=== PATIENT | female | born 1985 | race African-American/Black ===

== ENCOUNTER 2016-06-09 07:52 | Emergency (ER) | payer OTHER ==
[~2016-06-09] VITALS: Ht 157.5 cm; Wt 99.8 kg
[~2016-06-09 07:52] MED LIST: KEFLEX500 MG PO; NORCO 5-325 TA1 EACH PO; PHENERGAN 25 MG25 M1 PO; ZOFRAN ODT4 MG PO
[2016-06-09] MEDS ORDERED: NOHOMEMEDICATIONS (07:56)
[2016-06-09] MEDS ORDERED: FLEXERIL PO (09:41)
[2016-06-09 09:50] VITALS: BP 126/73
== END 2016-06-09 10:07 | disposition home or self-care (01) ==
LOC: ER 07:52
DX: S86.811A Strain of other muscle(s) and tendon(s) at lower leg level, right leg, initial encounter (principal); Z98.890 Other specified postprocedural states; F17.210 Nicotine dependence, cigarettes, uncomplicated; F10.99 Alcohol use, unspecified with unspecified alcohol-induced disorder; X58.XXXA Exposure to other specified factors, initial encounter; Y93.89 Activity, other specified; Y92.89 Other specified places as the place of occurrence of the external cause; Y99.0 Civilian activity done for income or pay

== ENCOUNTER 2016-11-22 12:25 | Emergency (ER) | payer OTHER ==
[~2016-11-22] VITALS: Ht 157.5 cm; Wt 107.0 kg
[2016-11-22 12:25] VITALS: BP 140/84
[~2016-11-22 12:25] MED LIST changes: +FLEXERIL PO; +NOHOMEMEDICATIONS
== END 2016-11-22 12:54 | disposition home or self-care (01) ==
LOC: ER 12:25
DX: Z53.21 Procedure and treatment not carried out due to patient leaving prior to being seen by health care provider (principal)

== ENCOUNTER 2017-01-04 10:44 | Emergency (ER) | payer OTHER ==
[~2017-01-04] VITALS: Ht 157.5 cm; Wt 95.3 kg
[~2017-01-04 10:44] MED LIST changes: +FLAGYL500 MG PO; +NAPROSYN500 MG PO
[2017-01-04 11:22] LABS: URINE BILIRUBIN NEGATIVE (Negative); URINE BLOOD 2+ (Negative); URINE COLOR YELLOW; URINE GLUCOSE-RANDOM* NEGATIVE (Negative); URINE KETONES NEGATIVE (Negative); URINE LEUKOCYTES-REFLEX 2+ (Negative); URINE PROTEIN (DIPSTICK) 1+ (Negative); URINE UROBILINOGEN 0.2 E.U./dl (0.2-1.0)
[2017-01-04 11:33] LABS: CASTS None Seen /LPF (None Seen); CRYSTALS None Seen /LPF (None Seen); SQUAMOUS 4-10 Moderate /LPF (0-3); URINE WBC-REFLEX >25 Many /HPF (0-5)
[2017-01-04] MEDS ORDERED: KEFLEX500 MG PO (12:10)
[2017-01-04] MEDS ORDERED: PHENAZOPYRIDIN200 M2 PO (12:10)
[2017-01-04] MEDS ORDERED: DIFLUCAN200 MG PO (12:30)
[2017-01-04 12:34] VITALS: BP 140/79
[2017-01-07 22:06] LABS: CHLAMYDIA TRACHOMATIS-PCR Negative (Negative); NEISSERIA GONORRHEA-PCR Negative (Negative)
== END 2017-01-04 12:35 | disposition home or self-care (01) ==
LOC: ER 10:44
PROVIDERS: Physician Assistant
DX: N39.0 Urinary tract infection, site not specified (principal); B37.3 Candidiasis of vulva and vagina; F17.210 Nicotine dependence, cigarettes, uncomplicated

== ENCOUNTER 2017-06-01 12:56 | Emergency (ER) | payer OTHER ==
[~2017-06-01] VITALS: Ht 157.5 cm; Wt 104.3 kg
[~2017-06-01 12:56] MED LIST changes: +DIFLUCAN200 MG PO; +PHENAZOPYRIDIN200 M2 PO
[2017-06-01] MEDS ORDERED: PREDNISONE 10 M10 M1 PO (13:54)
[2017-06-01] MEDS ORDERED: AMOXICILLIN 50500 M1 PO (13:54)
== END 2017-06-01 14:16 | disposition home or self-care (01) ==
LOC: ER 12:56
DX: K12.2 Cellulitis and abscess of mouth (principal); F17.210 Nicotine dependence, cigarettes, uncomplicated; Z98.890 Other specified postprocedural states

== ENCOUNTER 2017-11-15 16:10 | Emergency (ER) | payer OTHER ==
[~2017-11-15] VITALS: Ht 157.5 cm; Wt 99.8 kg
[~2017-11-15 16:10] MED LIST changes: +AMOXICILLIN 50500 M1 PO; +PREDNISONE 10 M10 M1 PO
[2017-11-15 17:40] LABS: ABSOLUTE NEUTROPHILS 6.1 thou/uL (1.4-8.2); BASOPHILS 0.5 % (0.0-2.0); EOSINOPHILS 1.4 % (0.0-3.0); HEMATOCRIT 39.5 % (37.0-47.0); HEMOGLOBIN 13.8 gm/dL (12.0-15.0); LYMPHOCYTES 30.2 % (24.0-44.0); MCH 30.6 pg (26.0-34.0); MCHC 34.8 g/dL (28.0-37.0); MCV 87.8 fL (80.0-100.0); MONOCYTES 7.1 % (1.0-8.0); PLATELET COUNT 279 thou/uL (150-400); POLYS 60.8 % (36.0-66.0); RDW 13.1 % (10.5-14.5); WBC 10.1 thou/uL (4.0-11.0)
[2017-11-15 17:47] LABS: CALCIUM 8.9 mg/dL (8.5-10.1); CREATININE 0.9 mg/dL (0.6-1.0); POTASSIUM 3.7 mmol/L (3.5-5.1)
[2017-11-15 17:47] LABS: URINE BILIRUBIN NEGATIVE (Negative); URINE BLOOD 2+ (Negative); URINE CLARITY CLEAR; URINE COLOR YELLOW; URINE GLUCOSE-RANDOM* NEGATIVE (Negative); URINE KETONES NEGATIVE (Negative); URINE LEUKOCYTES-REFLEX NEGATIVE (Negative); URINE NITRITE-REFLEX NEGATIVE (Negative); URINE PROTEIN (DIPSTICK) NEGATIVE (Negative); URINE SPECIFIC GRAVITY 1.015 (1.005-1.035); URINE UROBILINOGEN 0.2 E.U./dl (0.2-1.0)
[2017-11-15 17:48] LABS: SQUAMOUS 0-3 Few /LPF (0-3)
[2017-11-15 17:49] LABS: BACTERIA-REFLEX 1-9 Few /HPF (None Seen); CASTS None Seen /LPF (None Seen); CRYSTALS None Seen /LPF (None Seen); URINE RBC 0-2 Rare /HPF (0-2); URINE WBC-REFLEX None Seen /HPF (0-5)
[2017-11-15] MEDS ORDERED: CIPROFLOXACIN500 M1 PO (17:49)
[2017-11-15 17:53] LABS: ALBUMIN 3.8 g/dL (3.4-5.0); TOTAL BILIRUBIN 0.3 mg/dL (<0.1-1.0); TOTAL PROTEIN 8.3 g/dL (6.4-8.2)
[2017-11-15] MEDS ORDERED: PEPCID20 MG PO (18:14)
[2017-11-15 18:48] VITALS: BP 140/84
== END 2017-11-15 18:30 | disposition home or self-care (01) ==
LOC: ER 16:10
PROVIDERS: Emergency Medicine
DX: R10.30 Lower abdominal pain, unspecified (principal); R19.7 Diarrhea, unspecified; R11.0 Nausea; F17.210 Nicotine dependence, cigarettes, uncomplicated

== ENCOUNTER 2018-02-13 15:43 | Emergency (ER) | payer OTHER ==
[~2018-02-13] VITALS: Ht 157.5 cm; Wt 104.3 kg
[~2018-02-13 15:43] MED LIST changes: +CIPROFLOXACIN500 M1 PO; +PEPCID20 MG PO
[2018-02-13] MEDS ORDERED: TESSALON PERLE100 MG PO (17:44)
[2018-02-13] MEDS ORDERED: VIBRAMYCIN 100100 M2 PO (17:44)
[2018-02-13 18:05] VITALS: BP 150/90
== END 2018-02-13 18:06 | disposition home or self-care (01) ==
LOC: ER 15:43
DX: J18.9 Pneumonia, unspecified organism (principal)

== ENCOUNTER 2018-04-02 15:19 | Emergency (ER) | payer OTHER ==
[~2018-04-02] VITALS: Ht 157.5 cm; Wt 108.9 kg
--- NOTE | ~2018-04-02 | EKG ---
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
[~2018-04-02 15:19] MED LIST changes: +TESSALON PERLE100 MG PO; +VIBRAMYCIN 100100 M2 PO
[2018-04-02 16:08] LABS: HEMATOCRIT 37.6 % (37.0-47.0); HEMOGLOBIN 12.7 gm/dL (12.0-15.0); MCHC 33.8 g/dL (28.0-37.0); MCV 88.9 fL (80.0-100.0); RBC 4.23 mil/uL (4.20-5.00); RDW 13.7 % (10.5-14.5); WBC 8.3 thou/uL (4.0-11.0)
[2018-04-02] MEDS ORDERED: MOBIC7.5 MG PO (16:13)
[2018-04-02] MEDS ORDERED: NOHOMEMEDICATIONS (16:22)
[2018-04-02 16:33] VITALS: BP 134/79
== END 2018-04-02 16:34 | disposition home or self-care (01) ==
LOC: ER 15:19
PROVIDERS: Physician Assistant
DX: S29.011A Strain of muscle and tendon of front wall of thorax, initial encounter (principal); X58.XXXA Exposure to other specified factors, initial encounter; Y93.89 Activity, other specified; Y92.89 Other specified places as the place of occurrence of the external cause; Y99.8 Other external cause status; F17.210 Nicotine dependence, cigarettes, uncomplicated; Z88.0 Allergy status to penicillin

== ENCOUNTER 2018-04-09 11:43 | Emergency (ER) | payer OTHER ==
[~2018-04-09] VITALS: Ht 157.5 cm; Wt 108.9 kg
[~2018-04-09 11:43] MED LIST changes: +MOBIC7.5 MG PO
[2018-04-09] MEDS ORDERED: OSELB75 PO (12:42)
[2018-04-09 13:04] VITALS: BP 145/82
== END 2018-04-09 13:04 | disposition home or self-care (01) ==
LOC: ER 11:43
DX: J02.0 Streptococcal pharyngitis (principal); F17.210 Nicotine dependence, cigarettes, uncomplicated; Z88.0 Allergy status to penicillin

== ENCOUNTER 2018-06-04 23:21 | Emergency (ER) | payer OTHER ==
[~2018-06-04] VITALS: Ht 157.5 cm; Wt 113.4 kg
[~2018-06-04 23:21] MED LIST changes: +OSELB75 PO
[2018-06-05] MEDS ORDERED: MUCINEX1200 MG PO ×2 (00:27→00:28)
[2018-06-05] MEDS ORDERED: TESSALON PERLE100 MG PO (00:28)
[2018-06-05 00:56] VITALS: BP 131/56
== END 2018-06-05 00:56 | disposition home or self-care (01) ==
LOC: ER 23:21
DX: J06.9 Acute upper respiratory infection, unspecified (principal); Z88.0 Allergy status to penicillin

== ENCOUNTER 2018-08-14 01:20 | Emergency (ER) | payer OTHER ==
[~2018-08-14] VITALS: Ht 177.8 cm; Wt 99.8 kg
[~2018-08-14 01:20] MED LIST changes: +MUCINEX1200 MG PO
[2018-08-14 02:13] LABS: ABSOLUTE NEUTROPHILS 4.8 thou/uL (1.4-8.2); BASOPHILS 0.6 % (0.0-2.0); EOSINOPHILS 1.6 % (0.0-3.0); HEMATOCRIT 38.7 % (37.0-47.0); HEMOGLOBIN 13.2 gm/dL (12.0-15.0); MCH 30.8 pg (26.0-34.0); MCHC 34.2 g/dL (28.0-37.0); MCV 90.1 fL (80.0-100.0); MONOCYTES 7.4 % (1.0-8.0); PLATELET COUNT 278 thou/uL (150-400); POLYS 55.4 % (36.0-66.0); RDW 12.5 % (10.5-14.5); WBC 8.7 thou/uL (4.0-11.0)
[2018-08-14 02:16] LABS: ANION GAP 11 mmol/L (7-16); BUN 12 mg/dL (7-18); CALCIUM 9.1 mg/dL (8.5-10.1); CHLORIDE 102 mmol/L (98-107); CO2 25 mmol/L (21-32); CREATININE 0.9 mg/dL (0.6-1.0); GLUCOSE 110 mg/dL (74-106); POTASSIUM 3.3 mmol/L (3.5-5.1); SODIUM 138 mmol/L (136-145)
[2018-08-14 02:24] LABS: SGOT 31 U/L (15-37); SGPT 48 U/L (30-65); TOTAL BILIRUBIN 0.3 mg/dL (<0.1-1.0); TOTAL PROTEIN 7.4 g/dL (6.4-8.2); TROPONIN-I <0.06 ng/mL (<0.06)
[2018-08-14 02:25] LABS: ALBUMIN 3.5 g/dL (3.4-5.0)
[2018-08-14 02:26] LABS: APTT 28.6 Seconds (24.5-32.8); D-DIMER 0.33 ug/mLFEU (0.19-0.50)
[2018-08-14] MEDS ORDERED: NAPROSYN500 MG PO (02:46)
[2018-08-14] MEDS ORDERED: TRAMADOL 50 MG50 MG PO (02:46)
[2018-08-14 03:21] VITALS: BP 106/64
--- NOTE | 2018-08-14 08:45 | EKG ---
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1985 Requested By: Vinod Price Order Number: [id number] MD: Miguel A Valverde Measurements Intervals [place] Rate: 85 P: 48 [place]: 160 QRS: 51 QRSD: 100 T: 28 QT: 388 QTc: 462 Interpretive Statements Sinus rhythm No significant abnormality Compared to ECG 04/02/2018 15:41:42 No significant change was found Electronically Signed On 08-14-2018 8:45:48 CDT by Miguel A Valverde [email or web address] ��������������������������������������������� <ELECTRONICALLY SIGNED> ���������������������������������������� By: Miguel A Valverde MD, [facility] ��������������������������������������������� 08/14/18 0845 0125 4 Miguel A Valverde MD, FACC /EPI
== END 2018-08-14 03:24 | disposition home or self-care (01) ==
LOC: ER 01:20
PROVIDERS: Emergency Medicine
DX: R07.89 Other chest pain (principal); R09.1 Pleurisy; F17.210 Nicotine dependence, cigarettes, uncomplicated; Z88.0 Allergy status to penicillin

== ENCOUNTER 2018-10-08 16:36 | Emergency (ER) | payer OTHER ==
[~2018-10-08] VITALS: Ht 157.5 cm; Wt 104.3 kg
[~2018-10-08 16:36] MED LIST changes: +TRAMADOL 50 MG50 MG PO
[2018-10-08 18:51] VITALS: BP 160/71
[2018-10-08] MEDS ORDERED: MAGIC MOUTHWASH SWISH&SPIT ×2 (18:53)
== END 2018-10-08 18:51 | disposition home or self-care (01) ==
LOC: ER 16:36
DX: R13.10 Dysphagia, unspecified (principal); F17.210 Nicotine dependence, cigarettes, uncomplicated; Z88.0 Allergy status to penicillin

== ENCOUNTER 2018-11-28 22:12 | Emergency (ER) | payer OTHER ==
[~2018-11-28] VITALS: Ht 157.5 cm; Wt 99.8 kg
[~2018-11-28 22:12] MED LIST changes: +MAGIC MOUTHWASH SWISH&SPIT
[2018-11-29 00:19] VITALS: BP 142/93
== END 2018-11-29 00:20 | disposition home or self-care (01) ==
LOC: ER 22:12
DX: R51 Headache (principal); R05 Cough; F17.210 Nicotine dependence, cigarettes, uncomplicated; Z88.0 Allergy status to penicillin

== ENCOUNTER 2018-12-07 23:47 | Emergency (ER) | payer OTHER ==
[~2018-12-07] VITALS: Ht 157.5 cm; Wt 108.9 kg
[2018-12-07] MEDS ORDERED: IBUPROFEN 800800 M1 PO (23:54)
[2018-12-08 00:01] LABS: URINE BILIRUBIN NEGATIVE (Negative); URINE BLOOD 3+ (Negative); URINE CLARITY CLEAR; URINE COLOR YELLOW; URINE GLUCOSE-RANDOM* NEGATIVE (Negative); URINE KETONES NEGATIVE (Negative); URINE LEUKOCYTES-REFLEX TRACE (Negative); URINE NITRITE-REFLEX NEGATIVE (Negative); URINE PROTEIN (DIPSTICK) NEGATIVE (Negative); URINE UROBILINOGEN 0.2 E.U./dl (0.2-1.0)
[2018-12-08 00:09] LABS: CASTS None Seen /LPF (None Seen); CRYSTALS None Seen /LPF (None Seen); MUCUS None Seen strn/LPF (None Seen); SQUAMOUS >10 Many /LPF (0-3); URINE RBC 3-10 Few /HPF (0-2); URINE WBC-REFLEX None Seen /HPF (0-5)
[2018-12-08] MEDS ORDERED: ZPAK PO (01:27)
[2018-12-08 01:40] VITALS: BP 137/82
== END 2018-12-08 01:41 | disposition home or self-care (01) ==
LOC: ER 23:47
PROVIDERS: Emergency Medicine
DX: J18.9 Pneumonia, unspecified organism (principal); F17.210 Nicotine dependence, cigarettes, uncomplicated

== ENCOUNTER 2019-07-07 08:04 | Emergency (ER) | payer OTHER ==
[~2019-07-07] VITALS: Ht 157.5 cm; Wt 104.3 kg
[~2019-07-07 08:04] MED LIST changes: +IBUPROFEN 800800 M1 PO; +ZPAK PO
[2019-07-07 09:49] VITALS: BP 142/83
== END 2019-07-07 09:51 | disposition home or self-care (01) ==
LOC: ER 08:04
DX: J10.1 Influenza due to other identified influenza virus with other respiratory manifestations (principal); E66.01 Morbid (severe) obesity due to excess calories; F17.210 Nicotine dependence, cigarettes, uncomplicated; Z68.41 Body mass index [BMI] 40.0-44.9, adult

== ENCOUNTER 2020-01-21 12:31 | Emergency (ER) | payer OTHER ==
[~2020-01-21] VITALS: Ht 157.5 cm; Wt 104.3 kg
[2020-01-21] MEDS ORDERED: NOHOMEMEDICATIONS (13:01)
[2020-01-21 13:10] LABS: URINE BILIRUBIN NEGATIVE (Negative); URINE BLOOD NEGATIVE (Negative); URINE CLARITY CLEAR; URINE COLOR YELLOW; URINE GLUCOSE-RANDOM* NEGATIVE (Negative); URINE KETONES NEGATIVE (Negative); URINE LEUKOCYTES-REFLEX NEGATIVE (Negative); URINE NITRITE-REFLEX NEGATIVE (Negative); URINE PROTEIN (DIPSTICK) NEGATIVE (Negative); URINE SPECIFIC GRAVITY 1.015 (1.005-1.035); URINE UROBILINOGEN 0.2 E.U./dl (0.2-1.0)
[2020-01-21 13:57] VITALS: BP 125/74
== END 2020-01-21 13:57 | disposition home or self-care (01) ==
LOC: ER 12:31
PROVIDERS: Emergency Medicine
DX: R10.2 Pelvic and perineal pain (principal); R35.0 Frequency of micturition; R10.32 Left lower quadrant pain; N64.4 Mastodynia; F17.210 Nicotine dependence, cigarettes, uncomplicated

== ENCOUNTER 2020-02-13 11:46 | Emergency (ER) | payer OTHER ==
[~2020-02-13] VITALS: Ht 157.5 cm; Wt 99.8 kg
[2020-02-13 13:42] VITALS: BP 139/74
--- NOTE | 2020-02-15 08:11 | EKG ---
[facility] [place] [address] ELECTROCARDIOGRAM REPORT Name: OBDULIO CALLAWAY Room #: [facility]#: [id number] Admission: 02/13/20 Attend Phys: Discharge: 02/13/20 Date of : 85 Report #: [id number] THIS REPORT FOR: cc: LINDSAY Beard family physician/PCP LINDSAY Beard family physician/PCP Alec Mcallister MD [facility] THIS REPORT FOR: //name// [facility] ED Test Date: 2020-02-13 Test Time: 11:46:37 Pat Name: OBDULIO CALLAWAY Department: Room: Gender: F Operator Lights: [facility] : 1985 Requested By: Bo Casanova Order Number: [id number] : Alec Mcallister Measurements Intervals [place] Rate: 97 P: 64 [place]: 152 QRS: 70 QRSD: 93 T: 39 QT: 360 QTc: 458 Interpretive Statements Sinus rhythm Compared to ECG 05/22/2019 18:22:54 ST (T wave) deviation no longer present Electronically Signed On 02-15-2020 8:11:32 CDT by Alec Mcallister [email or web address] <ELECTRONICALLY SIGNED> By: Alec Mcallister MD, FACC 02/15/20 0811 1146 1146 Alec Mcallister MD, [facility] /EPI
== END 2020-02-13 13:57 | disposition home or self-care (01) ==
LOC: ER 11:46
DX: R07.89 Other chest pain (principal)

== ENCOUNTER → 2020-10-26 | Emergency (ER) | payer OTHER ==
[~2020-10-26] VITALS: Ht 157.5 cm; Wt 100.7 kg
[2020-10-26 23:49] VITALS: BP 138/77
== END ==
LOC: ER 23:45
DX: T75.89XA Other specified effects of external causes, initial encounter (principal); X58.XXXA Exposure to other specified factors, initial encounter; Y93.89 Activity, other specified; Y92.89 Other specified places as the place of occurrence of the external cause; Y99.8 Other external cause status

== ENCOUNTER 2021-04-14 13:18 | Emergency (ER) | payer OTHER ==
[~2021-04-14] VITALS: Ht 157.5 cm; Wt 104.3 kg
[2021-04-14 13:34] VITALS: BP 164/92
[2021-04-14] MEDS ORDERED: ZPAK PO (14:58)
== END 2021-04-14 15:05 | disposition home or self-care (01) ==
LOC: ER 13:18
DX: J03.90 Acute tonsillitis, unspecified (principal); Z20.822 Contact with and (suspected) exposure to COVID-19; F17.200 Nicotine dependence, unspecified, uncomplicated; Z98.890 Other specified postprocedural states